=== PATIENT | male | born 1990 | race Asian ===

== ENCOUNTER 2018-03-17 00:30 | Emergency (ER) | payer OTHER ==
[~2018-03-17] VITALS: Ht 175.3 cm; Wt 111.1 kg
[2018-03-17 00:45] VITALS: BP 137/83
[2018-03-17] MEDS ORDERED: cefTRIAXone SOD 1,000 MG VL IM ONE (03:00)
== END 2018-03-17 03:09 | disposition home or self-care (01) ==
LOC: ER 00:32
DX: T81.30XA Disruption of wound, unspecified, initial encounter (principal); X58.XXXA Exposure to other specified factors, initial encounter
CPT/HCPCS: 96372; 99283; J0696